=== PATIENT | male | born 1950 | race Caucasian/White ===

== ENCOUNTER 2017-06-12 09:55 | Emergency (ER) | payer OTHER ==
[~2017-06-12] VITALS: Ht 175.3 cm; Wt 114.1 kg
[~2017-06-12 09:55] MED LIST: Aspirin PO; Folvite PO; Glucophage PO; Januvia PO; Lopressor PO; Nitrostat,NitroQuick SL; Theragran PO; Tricor PO; Vicodin,Norco 5/325 PO; Zestril,Prinivil PO; Zocor PO; celeBREX PO
[2017-06-12 10:35] LABS: HEMATOCRIT 40.2 % (38.0-50.0); MCH 30.1 PG (29.0-34.0); MCHC 33.8 G/DL (30.0-36.0); MCV 88.9 FL (86-99); MEAN PLAT.VOLUME 10.6 uM^3 (9.0-12.4); PLATELET COUNT 183 K/uL (156-360); RBC DIS.WIDTH-CV 12.6 % (11.8-14.6); RBC DIS.WIDTH-SD 41.2 % (39-53); RED BLOOD COUNT 4.52 M/uL (4.00-5.50); WHITE BLOOD COUNT 12.3 K/uL (4.1-10.2)
[2017-06-12 10:44] LABS: CHLORIDE 106 mEq/L (99-109); POTASSIUM 3.5 mEq/L (3.7-5.4); SODIUM 141 mEq/L (136-147)
[2017-06-12 10:45] LABS: GLUCOSE 240 mg/dL (70-99)
[2017-06-12 10:47] LABS: ANION GAP 14 MEQ/L (2-14)
[2017-06-12 10:49] LABS: GFR ESTIMATE (CALCULATED) 50 mL/min/
[2017-06-12 10:50] LABS: UREA NITROGEN (BUN) 17 mg/dL (9-23)
[2017-06-12 12:22] LABS: ADD MIUA? YES; BILIRUBIN NEGATIVE; BLOOD LARGE; COLOR YELLOW ((YELLOW)); GLUCOSE (STRIP) 150; KETONES 5; LEUKOCYTES NEGATIVE; NITRITE NEGATIVE; PROTEIN (STRIP) 30; SPECIFIC GRAVITY 1.027 (1.000-1.030)
[2017-06-12 12:30] LABS: BACTERIA NONE SEEN /HPF; EPITHELIAL CELLS RARE /HPF; MUCUS TRACE /LPF; UCUL ADDED? NO; WHITE BLOOD CELLS 0-5 /HPF (0-5)
[2017-06-12 13:29] LABS: EOSINOPHIL (%) 0.1 % (0-5); IMMATURE GRANULOCYTE (%) 0.4 % (0.0-0.7); IMMATURE GRANULOCYTE COUNT 0.1 K/uL; LYMPHOCYTE COUNT 1.2 K/uL (1.0-2.8); MONOCYTE (%) 8.3 % (3-12); NEUTROPHIL (%) 81.5 % (45-76)
[2017-06-12 13:35] LABS: TOTAL BILIRUBIN 1.1 mg/dL (0.0-1.0)
[2017-06-12 13:36] LABS: ALKALINE PHOSPHATASE 84 IU/L (3-129)
[2017-06-12 13:39] LABS: DIRECT BILIRUBIN 0.5 mg/dL (0.0-0.3)
[2017-06-12 13:40] LABS: LIPASE 6 U/L (1.0-51.0)
[2017-06-12] MEDS ORDERED: ZOFRAN ODT4 MG PO (16:36)
[2017-06-12] MEDS ORDERED: MOTRIN800 MG PO (16:36)
[2017-06-12] MEDS ORDERED: BACTRIM,SEPT1 TABLET PO (16:36)
[2017-06-12] MEDS ORDERED: NORCO 10/3251 TABLET PO (16:36)
[2017-06-12 17:03] VITALS: BP 116/68
== END 2017-06-12 17:04 | disposition home or self-care (01) ==
LOC: EME 09:55
DX: N12 Tubulo-interstitial nephritis, not specified as acute or chronic (principal); E11.65 Type 2 diabetes mellitus with hyperglycemia; Z79.84 Long term (current) use of oral hypoglycemic drugs; N28.9 Disorder of kidney and ureter, unspecified; I10 Essential (primary) hypertension; Z98.84 Bariatric surgery status; Z90.79 Acquired absence of other genital organ(s); Z87.891 Personal history of nicotine dependence
CPT/HCPCS: 74176; 76870; 80048; 80076; 81003; 83690; 85025; 85027; 87086; 93975; 99281; 99285

== ENCOUNTER 2017-10-16 18:26 | Emergency (ER) | payer OTHER ==
[~2017-10-16] VITALS: Ht 175.3 cm; Wt 105.6 kg
[~2017-10-16 18:26] MED LIST changes: +BACTRIM,SEPT1 TABLET PO; +MOTRIN800 MG PO; +NORCO 10/3251 TABLET PO; +ZOFRAN ODT4 MG PO
[2017-10-16 23:12] VITALS: BP 119/59
== END 2017-10-16 23:13 | disposition home or self-care (01) ==
LOC: EME 18:26
DX: S61.202A Unspecified open wound of right middle finger without damage to nail, initial encounter (principal); W26.8XXA Contact with other sharp object(s), not elsewhere classified, initial encounter; I10 Essential (primary) hypertension; E78.00 Pure hypercholesterolemia, unspecified; I25.2 Old myocardial infarction; E11.9 Type 2 diabetes mellitus without complications
CPT/HCPCS: 99281; 99284